=== PATIENT | female | born 1970 | race Caucasian/White ===

== ENCOUNTER 2017-05-23 17:31 | Inpatient (IN) | payer MEDICAID, OTHER ==
[~2017-05-23] VITALS: Ht 157.5 cm; Wt 73.9 kg
[~2017-05-23 17:31] MED LIST: CARB200T6 PO; DIVA500T35 PO; GABA-531 PO
[2017-05-23] MEDS ORDERED: PREG75 PO (17:45)
[2017-05-23] MEDS ORDERED: HALOPERIDOL LACTATE 5 MG/ML VIAL IM ONE (17:45)
[2017-05-23 18:25] LABS: HEMATOCRIT 27.7 % (36-46); LYMPHOCYTES # (AUTO) 0.9 K/uL (1.0-4.8); LYMPHOCYTES % (AUTO) 14.7 % (22.0-44.0); MEAN CORPUSCULAR HGB CONC 32.7 G/dL (31.0-37.0); MEAN CORPUSCULAR VOLUME 83 fL (80-100); MONOCYTES # (AUTO) 0.4 K/uL (0.1-1.0); MONOCYTES % (AUTO) 5.7 % (2.0-9.0); NEUTROPHILS % (AUTO) 77.6 % (40.0-70.0); PLATELET COUNT (AUTO) 308 K/uL (150-450); RED BLOOD CELL COUNT(AUTO) 3.35 MIL/uL (4.00-5.20); RED CELL DISTRIBUTION WIDTH 19.7 % (11.5-14.5); WHITE BLOOD COUNT (AUTO) 6.4 K/uL (4.5-11.0)
[2017-05-23 18:48] LABS: RBC MORPHOLOGY COMMENT ABNORMAL RBC MORPH
[2017-05-23 19:12] LABS: ANION GAP 2 mmol/L (8-16); CALCIUM, TOTAL 7.9 mg/dL (8.8-10.5); CARBON DIOXIDE 33 mmol/L (22-29); CHLORIDE 104 mmol/L (98-107); CREATININE 1.31 mg/dL (0.60-1.30); GLOMERULAR FILTR. RATE CALC 44 mL/min (>60); POTASSIUM 3.6 mmol/L (3.5-5.1); SODIUM SERUM 139 mmol/L (136-145); UREA NITROGEN, BLOOD 26 mg/dL (7-18)
[2017-05-23 19:18] LABS: ALANINE AMINOTRANSFERASE 74 U/L (12-78); ALBUMIN 2.9 g/dL (3.4-5.0); ASPARTATE AMINOTRANSFERASE 114 U/L (15-37); BILIRUBIN,TOTAL 0.2 mg/dL (0.1-1.0); TOTAL PROTEIN, SERUM 5.9 g/dL (6.4-8.2); VALPROIC ACID 50 mcg/mL (50-100)
[2017-05-23] MEDS ORDERED: HALOPERIDOL 5 MG TABLET PO PRN (21:30)
[2017-05-24 18:30] VITALS: BP 109/71
[2017-05-25 02:15] VITALS: BP 137/99
[2017-05-25] MEDS: LORazepam 2 MG TABLET PO PRN ×2 (02:16→16:10)
[2017-05-25 08:59] VITALS: BP 85/46
[2017-05-25] MEDS: DIVALPROEX SODIUM 500 MG DR TABLET PO SCH ×3 (09:13→16:11)
[2017-05-25] MEDS: CarBAMazepine 200 MG TABLET PO SCH ×3 (09:13→16:11)
[2017-05-25] MEDS: PREGABALIN 75 MG CAPSULE PO SCH (09:13)
[2017-05-25] MEDS ORDERED: PREGABALIN 75 MG CAPSULE PO SCH (11:15)
[2017-05-25] MEDS ORDERED: DIVALPROEX SODIUM 500 MG ER TABLET PO SCH (13:00)
[2017-05-25] MEDS ORDERED: CarBAMazepine 200 MG TABLET PO SCH (13:00)
[2017-05-25 16:15] VITALS: BP 129/60
[2017-05-25] MEDS ORDERED: ACETAMINOPHEN 325 MG TABLET PO PRN (20:30)
[2017-05-26 01:22] VITALS: BP 112/83
[2017-05-26] MEDS: ZOLPIDEM TARTRATE 10 MG TABLET PO PRN ×2 (01:29→21:23)
[2017-05-26] MEDS: CarBAMazepine 200 MG TABLET PO SCH ×3 (08:16→16:19)
[2017-05-26] MEDS: PREGABALIN 75 MG CAPSULE PO SCH (08:16)
[2017-05-26] MEDS: DIVALPROEX SODIUM 500 MG DR TABLET PO SCH ×3 (08:16→16:19)
[2017-05-26] MEDS ORDERED: CloNIDine HCL 0.1 MG TABLET PO PRN (13:00)
[2017-05-26 13:36] VITALS: BP 130/93
[2017-05-26] MEDS: LORazepam 2 MG TABLET PO PRN ×2 (16:22→21:23)
[2017-05-26 20:00] VITALS: BP 121/79
[2017-05-27 00:12] VITALS: BP 99/61
[2017-05-27 08:05] VITALS: BP 125/73
[2017-05-27] MEDS: PREGABALIN 75 MG CAPSULE PO SCH (08:34)
[2017-05-27] MEDS: DIVALPROEX SODIUM 500 MG DR TABLET PO SCH ×2 (08:34→12:33)
[2017-05-27] MEDS: CarBAMazepine 200 MG TABLET PO SCH ×2 (08:34→12:33)
[2017-05-27] MEDS ORDERED: LOPERAMIDE HCL 2 MG CAPSULE PO PRN (13:45)
== END 2017-05-27 14:30 | disposition home or self-care (01) | DRG 751 ==
LOC: EMS 17:33 → 3EI 05-24 17:38
PROVIDERS: ADMIT Psychiatry & Neurology Child & Adolescent Psychiatry; ATTEND Psychiatry & Neurology Child & Adolescent Psychiatry
DX: F29 Unspecified psychosis not due to a substance or known physiological condition (principal); G40.909 Epilepsy, unspecified, not intractable, without status epilepticus; D64.9 Anemia, unspecified; Z88.1 Allergy status to other antibiotic agents; Z88.8 Allergy status to other drugs, medicaments and biological substances; Z79.899 Other long term (current) drug therapy; Z87.442 Personal history of urinary calculi
CPT/HCPCS: 70450; 96372; 99291; G0480; J1630